=== PATIENT | female | born 1995 | race Caucasian/White ===

== ENCOUNTER 2022-07-12 03:05 | Inpatient (IN) | payer OTHER ==
[2022-07-12] MEDS ORDERED: ELECTROLYTE-148 SOLN 1,000 ML IV SCH ×2 (03:45→05:15)
[2022-07-12] MEDS ORDERED: AMPICILLIN - 2 GM in SODIUM CHLORIDE 100 ML IVPB ONE (04:30)
[2022-07-12] MEDS ORDERED: AMPICILLIN - 1 GM in SODIUM CHLORIDE 100 ML IVPB SCH (05:00)
[2022-07-12 05:16] VITALS: BMI 24.3
[2022-07-12 05:27] LABS: INR 0.93 (0.83-1.09); PROTHROMBIN TIME (PATIENT) 10.7 SEC (9.7-13.0)
[2022-07-12 05:29] LABS: ACTIVATED PTT 26.4 SECONDS (25.2-36.5)
[2022-07-12] MEDS ORDERED: FENTANYL/BUPIVACAINE/NS/PF - PCEA - 50 ML DISP.SYRIN EP ONE ×2 (05:30→09:52)
[2022-07-12 05:31] LABS: CALCIUM 8.8 mg/dL (8.5-10.1)
[2022-07-12 05:32] LABS: BLOOD UREA NITROGEN 8.3 mg/dL (7-18)
[2022-07-12 05:35] LABS: CREATININE 0.5 mg/dL (0.55-1.3)
[2022-07-12] MEDS ORDERED: FENTANYL CITRATE/PF 50 MCG/ML VIAL ONE (05:42)
[2022-07-12] MEDS ORDERED: BUPIVACAINE HCL/PF 0.25% (2.5MG/ML) 10 ML VIAL ONE (05:47)
[2022-07-12 05:55] LABS: BASO % 0.1 % (0-2.0); EOS % 0.1 % (0-4.5); HEMATOCRIT 39.6 % (32.4-45.2); HEMOGLOBIN 13.3 GM/dL (10.7-15.3); LYMPH % 10.2 % (8-40); MCH 30.8 pg (25.7-33.7); MCHC 33.5 g/dl (32.0-36.0); MEAN PLT VOLUME 9.6 fl (7.5-11.1); NEUT % 85.6 % (42.8-82.8); PLATELET COUNT 173 10^3/uL (134-434); RBC 4.31 M/mm3 (3.60-5.2); RDW 13.9 % (11.6-15.6); WHITE BLOOD COUNT 17.3 K/mm3 (4.0-10.0)
[2022-07-12] MEDS: FENTANYL/BUPIVACAINE/NS/PF - PCEA - 50 ML DISP.SYRIN EP SCH ×2 (05:55→09:55)
[2022-07-12] MEDS ORDERED: NALOXONE HCL 0.4 MG/ML VIAL IVPUSH PRN (06:13)
[2022-07-12 07:25] LABS: COCAINE, UR NEGATIVE (NEGATIVE); OPIATES, URI NEGATIVE (NEGATIVE); URINE AMPHETAMINES NEGATIVE (NEGATIVE)
[2022-07-12 07:26] LABS: METHADONE, UR NEGATIVE (NEGATIVE); PHENCYCLIDINE,URINE NEGATIVE (NEGATIVE); URINE BARBITURATES NEGATIVE (NEGATIVE); URINE BENZODIAZEPINES NEGATIVE (NEGATIVE)
[2022-07-12] MEDS ORDERED: AMPICILLIN SODIUM 1 GM VIAL ONE (08:30)
[2022-07-12] MEDS: AMPICILLIN - 1 GM in SODIUM CHLORIDE 100 ML IVPB SCH ×2 (08:37→12:33)
[2022-07-12] MEDS ORDERED: LIDOCAINE HCL 1% PRESERVATIVE FREE - 30ML VIAL ONE (10:36)
[2022-07-12] MEDS ORDERED: OXYTOCIN 20 UNITS in 0.9% NS 20 UNIT/1,000 ML INFUS.BAG IV ONE ×2 (10:37→13:28)
[2022-07-12 12:39] LABS: CORD BASE EXCESS -5.1 mmol/L (0-2); CORD HCO3 22.4 mmHg (20-29); CORD PCO2 49.7 mmHg (30-78); CORD pH 7.272 (7.14-7.44)
[2022-07-12 12:41] LABS: CORD HCO3 22.4 mmHg (20-29); CORD PCO2 60.4 mmHg (30-78); CORD pH 7.187 (7.14-7.44)
[2022-07-12] MEDS ORDERED: oxyCODONE HCL 5 MG TABLET PO PRN (12:53)
[2022-07-12] MEDS ORDERED: METHYLERGONOVINE MALEATE 0.2 MG/1 ML AMP IM PRN (12:53)
[2022-07-12] MEDS ORDERED: BISACODYL 10 MG SUPP.RECT RC PRN (12:53)
[2022-07-12] MEDS ORDERED: BENZOCAINE 28 GM HEMORRHOIDAL OINTMENT TP PRN (12:53)
[2022-07-12] MEDS ORDERED: ACETAMINOPHEN 325 MG TABLET (FP) PO PRN (12:53)
[2022-07-12] MEDS ORDERED: BENZOCAINE 20% 57 GM BOTTLE TP PRN (12:53)
[2022-07-12] MEDS ORDERED: WITCH HAZEL 50% (TUCKS) 40 PAD/JAR PAD TP PRN (12:53)
[2022-07-12] MEDS ORDERED: OXYTOCIN 20 UNITS in 0.9% NS 20 UNIT/1,000 ML INFUS.BAG IV SCH ×2 (13:00→13:15)
[2022-07-12] MEDS: IBUPROFEN 600 MG TABLET (FP) PO PRN ×2 (14:51→21:15)
[2022-07-13 08:50] LABS: BASO % 0.2 % (0-2.0); EOS % 0.5 % (0-4.5); HEMATOCRIT 37.4 % (32.4-45.2); HEMOGLOBIN 12.4 GM/dL (10.7-15.3); LYMPH % 16.9 % (8-40); MCHC 33.1 g/dl (32.0-36.0); MEAN CELL VOLUME 93.7 fl (80-96); MEAN PLT VOLUME 8.6 fl (7.5-11.1); MONO % 5.3 % (3.8-10.2); NEUT % 77.1 % (42.8-82.8); PLATELET COUNT 163 10^3/uL (134-434); RDW 14.2 % (11.6-15.6); WHITE BLOOD COUNT 14.5 K/mm3 (4.0-10.0)
[2022-07-13] MEDS ORDERED: SENNOSIDES/DOCUSATE COMBO (SENNA PLUS) TABLET (UD) PO PRN (22:00)
[2022-07-14] MEDS: IBUPROFEN 600 MG TABLET (FP) PO PRN (06:07)
[2022-07-14 10:20] VITALS: BP 111/71; PULSE 81; RESP 17; TEMP 98
== END 2022-07-14 13:10 | disposition home or self-care (01) | DRG 560 ==
LOC: JDEL 03:05 → JLDR 03:45 → J3W 13:40
PROVIDERS: ADMIT Obstetrics & Gynecology; ATTEND Obstetrics & Gynecology
PROC: 10E0XZZ Delivery of Products of Conception, External Approach (ICD-10-PCS; principal; 2022-07-12)
PROC: 0W8NXZZ Division of Female Perineum, External Approach (ICD-10-PCS; 2022-07-12)
PROC: 0HQ9XZZ Repair Perineum Skin, External Approach (ICD-10-PCS; 2022-07-12)
DX: O48.0 Post-term pregnancy (principal); O99.824 Streptococcus B carrier state complicating childbirth; O70.0 First degree perineal laceration during delivery; Z3A.40 40 weeks gestation of pregnancy; Z37.0 Single live birth
CPT/HCPCS: 36415; 36600; 59409; 80048; 80307; 82803; 85025; 85610; 85730; 86780; 86850; 86900; 86901; 87340; C9803-CS; U0003; U0005